=== PATIENT | male | born 1990 | race Caucasian/White ===

== ENCOUNTER 2018-06-13 11:53 | Emergency (ER) | payer OTHER ==
[2018-06-13] MEDS ORDERED: LIDOCAINE 5% (700 MG) TRANSDERMAL ADH..PATCH TP ONE (12:55)
[2018-06-13] MEDS ORDERED: IBUPROFEN 600 MG TABLET PO ONE (12:55)
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
[2018-06-13 13:20] VITALS: BP 138/87
== END 2018-06-13 13:13 | disposition home or self-care (01) ==
LOC: ER 11:53
DX: M54.5 Low back pain (principal); V87.7XXA Person injured in collision between other specified motor vehicles (traffic), initial encounter
CPT/HCPCS: 99283